=== PATIENT | female | born 1945 ===

== ENCOUNTER 2021-04-14 15:00 | Inpatient (IN) ==
[2021-04-14] MEDS ORDERED: ATROPINE 1 MG/10 ML SYRINGE ONE (15:37)
[2021-04-14 15:43] LABS: Basophils % 0.2 % (0.0-0.8); Eosinophils % 0.2 % (0.00-10.9); Hematocrit 41.3 VOL% (35.7-47.0); Hemoglobin 13.2 GM/DL (12.0-16.0); Immature Granulocytes % 9.2 %; Immature Granulocytes Absolute 0.94 #; Lymphocytes # 1.7 10*3/uL (1.4-4.0); Lymphocytes % 16.8 % (21.3-54.2); Mean Corpuscular Volume 101.2 FL (87-102); Mean Platelet Volume 9.9 FL (9.6-12.0); Monocytes % 4.7 % (1.7-12.7); NRBC # 0.03 10*3/uL; Neutrophils % 68.9 % (38.7-73.9); Platelet Count 153 T/CUMM (130-400); Red Blood Count 4.08 MC/CUMM (3.8-5.5); Red Cell Distribution Width 15.7 % (9.3-17.3); White Blood Count 10.2 T/CUMM (4-12)
[2021-04-14] MEDS ORDERED: ATROPINE 1 MG/10 ML SYRINGE IV STA (15:46)
[2021-04-14 15:50] LABS: ABG Base Excess -8.5 MMOL/L (-2.5-2.5); ABG HCO3 17.6 MMOL/L (20-26); ABG Oxygen Saturation 99.7 % (95-100); ABG PCO2 22.8 MM HG (35-48); ABG TCO2 12.8 MMOL/L (23-27)
[2021-04-14 15:54] LABS: Alanine Aminotransferase 18 U/L (13-56); Albumin 2.2 G/DL (3.4-5.0); Alkaline Phosphatase 167 U/L (45-117); Aspartate Amino Transferase 227 U/L (0-37); Blood Urea Nitrogen 16 MG/DL (7-18); Calcium 8.6 MG/DL (8.5-10.1); Carbon Dioxide 18 MMOL/L (21-32); Estimated Glom Filtration Rate 38 ML/MIN; Glucose 99 MG/DL (74-106); Osmolality,Calculated 279.4 MOS/KG (273-304); Potassium 4.7 MMOL/L (3.5-5.1); Sodium 140 MMOL/L (136-145); Total Protein 6.5 G/DL (6.4-8.2)
[2021-04-14] MEDS ORDERED: NOREPINEPHRINE 4 MG/4 ML VIAL IV ONE (15:59)
[2021-04-14 16:03] LABS: Barbiturates Screen,Urine Negative (Negative); Benzodiazepines Screen,Urine Negative (Negative); Cannabinoid Screen,Urine Negative (Negative); Opiate Screen,Urine Negative (Negative); Phencyclidine Screen,Urine Negative (Negative)
[2021-04-14 16:09] LABS: Bacteria,Urine Many /HPF (Few); Bilirubin,Urine Negative (Negative); Blood, Urine Negative (Negative); Glucose,Urine (UA) Negative (Negative); Ketones,Urine 5 mg/dL (Negative); Mucus,Urine Many /LPF (Occasional); Nitrite,Urine Negative (Negative); Protein,Urine 100 MG/DL; RBC,Urine 9 /HPF (0-4); Urine Appearance CLOUDY (Clear); Urine Color Amber (Yellow); Urine Specific Gravity 1.015 (1.001-1.035)
[2021-04-14 16:17] LABS: Atypical Lymphocytes 1+; Band Neutrophils 2 % (0-10); Lymphocytes 20 % (20-55); Platelet Estimate Normal; Segmented Neutrophils 69 % (50-85); Total Cells Counted 100
[2021-04-14] MEDS ORDERED: ALBUTEROL 2.5 MG/3 ML NEB RESP TX PRN (16:42)
[2021-04-14] MEDS ORDERED: ONDANSETRON 4 MG/2 ML VIAL IV PRN (16:43)
[2021-04-14] MEDS ORDERED: MORPHINE 2 MG/1 ML SYRINGE IV PRN (16:43)
[2021-04-14] MEDS ORDERED: MIDAZOLAM 2 MG/2 ML VIAL IV PRN (17:35)
[2021-04-14] MEDS ORDERED: fentaNYL 100 MCG/2 ML VIAL IV PRN (17:37)
[2021-04-14 17:47] LABS: INR 1.3; PT Patient Result 14.1 SECS (10.5-12.0); Partial Thromboplastin Time 29.6 SECS (23.8-32.1)
[2021-04-14] MEDS: ATROPINE 1 MG/10 ML SYRINGE IV PRN (17:49)
[2021-04-14] MEDS: MIDAZOLAM 100 MG in SODIUM CHLORIDE 0.9% 80 ML IV SCH (17:56)
[2021-04-14] MEDS ORDERED: INFLUENZA VIRUS VACCINE 0.5 ML SYRINGE IM ONE (18:21)
[2021-04-14] MEDS: LACTATED RINGERS 1,000 ML IV SCH (18:30)
[2021-04-14] MEDS: CLINDAMYCIN INJ 600 MG/50 ML PREMIX IV SCH (18:41)
[2021-04-14] MEDS: ENOXAPARIN 40 MG/0.4 ML SYRINGE SUBCUT SCH (18:42)
[2021-04-14] MEDS: cefTRIAXone 1,000 MG in SODIUM CHLORIDE 0.9% 100 ML IV SCH (18:42)
[2021-04-14] MEDS ORDERED: MAGNESIUM SULF RIDER 2 GM/50 ML PREMIX IV PRN (19:44)
[2021-04-14] MEDS ORDERED: MAGNESIUM SULF RIDER 4 GM/100 ML PREMIX IV PRN (19:44)
[2021-04-14] MEDS ORDERED: POTASSIUM CHLORIDE RIDER 10 MEQ/100 ML PREMIX IV PRN (19:44)
[2021-04-14] MEDS ORDERED: SODIUM CHLORIDE 0.9% 1,000 ML IV STA (20:24)
[2021-04-14] MEDS: CARBIDOPA/LEVODOPA 25-100 MG TABLET PO SCH (20:57)
[2021-04-14] MEDS: levETIRAcetam 500 MG TABLET PO SCH (20:57)
[2021-04-14] MEDS: FAMOTIDINE 20 MG/2 ML VIAL IV SCH (20:57)
[2021-04-14] MEDS: DONEPEZIL 10 MG TABLET PO SCH (20:57)
[2021-04-14] MEDS: DIVALPROEX 250 MG TABLET PO SCH (20:57)
[2021-04-14] MEDS: INSULIN REGULAR 100 UNIT/ML IV SCH (21:26)
[2021-04-14] MEDS: CISATRACURIUM 10 MG/5 ML VIAL IV PRN (22:56)
[2021-04-14 23:18] LABS: Basophils % 0.2 % (0.0-0.8); Hematocrit 34.1 VOL% (35.7-47.0); Hemoglobin 11.4 GM/DL (12.0-16.0); Immature Granulocytes % 2.3 %; Immature Granulocytes Absolute 0.24 #; Lymphocytes # 1.5 10*3/uL (1.4-4.0); Lymphocytes % 14.6 % (21.3-54.2); Mean Corpuscular HGB Conc 33.4 GM/DL (32-36); Mean Platelet Volume 9.3 FL (9.6-12.0); Monocytes % 10.3 % (1.7-12.7); Neutrophils % 72.6 % (38.7-73.9); Platelet Count 140 T/CUMM (130-400); Red Blood Count 3.59 MC/CUMM (3.8-5.5); White Blood Count 10.2 T/CUMM (4-12)
[2021-04-14 23:28] LABS: INR 1.5; PT Patient Result 16.7 SECS (10.5-12.0); Partial Thromboplastin Time 42.1 SECS (23.8-32.1)
[2021-04-14 23:38] LABS: Calcium 7.6 MG/DL (8.5-10.1); Osmolality,Calculated 279.4 MOS/KG (273-304); Potassium 3.2 MMOL/L (3.5-5.1)
[2021-04-14 23:45] LABS: High Sensitive Troponin I* 422.7 ng/L (0-54)
[2021-04-14] MEDS: POTASSIUM CHLORIDE RIDER 20 MEQ/100 ML PREMIX IV PRN (23:59)
[2021-04-15] MEDS: POTASSIUM CHLORIDE RIDER 20 MEQ/100 ML PREMIX IV PRN (01:00)
[2021-04-15] MEDS: fentaNYL INJ 1,250 MCG in SODIUM CHLORIDE 0.9% 225 ML IV PRN (01:16)
[2021-04-15] MEDS: CLINDAMYCIN INJ 600 MG/50 ML PREMIX IV SCH ×3 (01:33→16:37)
[2021-04-15] MEDS: INSULIN REGULAR 100 UNIT/ML IV SCH ×7 (02:20→22:14)
[2021-04-15 04:34] LABS: Basophils % 0.2 % (0.0-0.8); Hemoglobin 10.9 GM/DL (12.0-16.0); Immature Granulocytes % 2.1 %; Lymphocytes # 1.5 10*3/uL (1.4-4.0); Lymphocytes % 15.3 % (21.3-54.2); Mean Corpuscular HGB Conc 34.1 GM/DL (32-36); Mean Corpuscular Volume 94.4 FL (87-102); Monocytes % 9.6 % (1.7-12.7); Neutrophils % 72.8 % (38.7-73.9); Platelet Count 134 T/CUMM (130-400); Red Blood Count 3.39 MC/CUMM (3.8-5.5); Red Cell Distribution Width 15.1 % (9.3-17.3); White Blood Count 9.7 T/CUMM (4-12)
[2021-04-15 04:35] LABS: ABG Base Excess -2.8 MMOL/L (-2.5-2.5); ABG HCO3 22.1 MMOL/L (20-26); ABG Oxygen Saturation 99.9 % (95-100); ABG PCO2 21.7 MM HG (35-48); ABG PH 7.535 (7.35-7.45); ABG TCO2 16.3 MMOL/L (23-27)
[2021-04-15 04:43] LABS: INR 1.5; PT Patient Result 16.1 SECS (10.5-12.0); Partial Thromboplastin Time 42.5 SECS (23.8-32.1)
[2021-04-15] MEDS: LACTATED RINGERS 1,000 ML IV SCH ×3 (04:53→23:00)
[2021-04-15 04:56] LABS: CKMB % 4.8 %; High Sensitive Troponin I* 293.1 ng/L (0-54)
[2021-04-15 05:15] LABS: Albumin 1.7 G/DL (3.4-5.0); Bilirubin,Total 1.3 MG/DL (0.20-1.00); Calcium 7.4 MG/DL (8.5-10.1); Osmolality,Calculated 283.1 MOS/KG (273-304); Potassium 4.2 MMOL/L (3.5-5.1); Total Protein 4.5 G/DL (6.4-8.2)
[2021-04-15 05:20] LABS: Bacteria,Urine Occasional /HPF (Few); Bilirubin,Urine Negative (Negative); Blood, Urine Small mg/dL (Negative); Glucose,Urine (UA) Negative (Negative); Ketones,Urine Negative (Negative); Mucus,Urine Occasional /LPF (Occasional); Nitrite,Urine Negative (Negative); Protein,Urine Negative; RBC,Urine 7 /HPF (0-4); Squamous Epithelial Cell,Urine Occasional /HPF (0-10); Urine Appearance Slightly Hazy (Clear); Urine Color Yellow (Yellow); Urine Specific Gravity 1.006 (1.001-1.035)
[2021-04-15] MEDS: FAMOTIDINE 20 MG/2 ML VIAL IV SCH ×2 (08:18→20:57)
[2021-04-15] MEDS: CARBIDOPA/LEVODOPA 25-100 MG TABLET PO SCH ×3 (08:18→20:57)
[2021-04-15] MEDS: levETIRAcetam 500 MG TABLET PO SCH (08:19)
[2021-04-15] MEDS: DIVALPROEX 250 MG TABLET PO SCH ×3 (08:19→20:57)
[2021-04-15] MEDS ORDERED: SODIUM CHLORIDE 0.9% 1,000 ML IV ONE (10:23)
[2021-04-15 10:55] LABS: Calcium 7.3 MG/DL (8.5-10.1); Potassium 3.6 MMOL/L (3.5-5.1)
[2021-04-15] MEDS: ATROPINE 1 MG/10 ML SYRINGE IV PRN (11:00)
[2021-04-15 11:09] LABS: Basophils % 0.1 % (0.0-0.8); Hematocrit 29.5 VOL% (35.7-47.0); Hemoglobin 10.2 GM/DL (12.0-16.0); Immature Granulocytes % 2.9 %; Immature Granulocytes Absolute 0.27 #; Lymphocytes # 1.4 10*3/uL (1.4-4.0); Mean Corpuscular HGB Conc 34.6 GM/DL (32-36); Mean Corpuscular Volume 94.9 FL (87-102); Mean Platelet Volume 10.1 FL (9.6-12.0); Monocytes % 9.2 % (1.7-12.7); Neutrophils % 72.8 % (38.7-73.9); Platelet Count 129 T/CUMM (130-400); Red Blood Count 3.11 MC/CUMM (3.8-5.5); Red Cell Distribution Width 15.5 % (9.3-17.3); White Blood Count 9.2 T/CUMM (4-12)
[2021-04-15] MEDS ORDERED: DEXTROSE 50% 25 GM/50 ML SYRINGE IV ONE ×2 (11:09→11:30)
[2021-04-15 11:15] LABS: INR 1.4; PT Patient Result 15.3 SECS (10.5-12.0); Partial Thromboplastin Time 41.6 SECS (23.8-32.1)
[2021-04-15 11:22] LABS: CKMB % 5.4 %; High Sensitive Troponin I* 203.7 ng/L (0-54)
[2021-04-15 11:55] LABS: Ovalocytes Few; Platelet Estimate Adequate; Polychromasia Slight
[2021-04-15] MEDS ORDERED: LORazepam 2 MG/1 ML VIAL ONE (14:46)
[2021-04-15] MEDS: LORazepam 2 MG/1 ML VIAL IV PRN (14:50)
[2021-04-15] MEDS: cefTRIAXone 1,000 MG in SODIUM CHLORIDE 0.9% 100 ML IV SCH (16:05)
[2021-04-15] MEDS: ENOXAPARIN 40 MG/0.4 ML SYRINGE SUBCUT SCH (16:08)
[2021-04-15] MEDS: CISATRACURIUM 10 MG/5 ML VIAL IV PRN (16:29)
[2021-04-15] MEDS ORDERED: ACETAMINOPHEN 325 MG/10.15 ML UDCUP PO PRN (17:15)
[2021-04-15] MEDS: MIDAZOLAM 100 MG in SODIUM CHLORIDE 0.9% 80 ML IV SCH ×2 (17:30→18:09)
[2021-04-15] MEDS ORDERED: POTASSIUM CHLORIDE RIDER 20 MEQ/100 ML PREMIX IV PRN (17:30)
[2021-04-15 17:52] LABS: Hemoglobin 9.6 GM/DL (12.0-16.0); Immature Granulocytes Absolute 0.16 #; Mean Corpuscular HGB Conc 34.3 GM/DL (32-36); Mean Corpuscular Volume 94.6 FL (87-102); Mean Platelet Volume 10.6 FL (9.6-12.0); Monocytes % 8.8 % (1.7-12.7); Neutrophils % 76.2 % (38.7-73.9); Platelet Count 121 T/CUMM (130-400); Red Blood Count 2.96 MC/CUMM (3.8-5.5); Red Cell Distribution Width 15.7 % (9.3-17.3)
[2021-04-15 18:06] LABS: INR 1.5; PT Patient Result 16.2 SECS (10.5-12.0); Partial Thromboplastin Time 48.7 SECS (23.8-32.1)
[2021-04-15 18:11] LABS: CKMB % 5.3 %; High Sensitive Troponin I* 147.8 ng/L (0-54)
[2021-04-15 18:29] LABS: Calcium 7.1 MG/DL (8.5-10.1); Potassium 3.9 MMOL/L (3.5-5.1)
[2021-04-15] MEDS: DONEPEZIL 10 MG TABLET PO SCH (20:57)
[2021-04-15] MEDS ORDERED: LACTATED RINGERS 500 ML IV ONE (23:20)
[2021-04-15 23:21] LABS: Basophils % 0.1 % (0.0-0.8); Hematocrit 26.1 VOL% (35.7-47.0); Immature Granulocytes % 2.4 %; Immature Granulocytes Absolute 0.19 #; Lymphocytes # 1.1 10*3/uL (1.4-4.0); Lymphocytes % 14.4 % (21.3-54.2); Mean Corpuscular HGB Conc 34.5 GM/DL (32-36); Mean Corpuscular Volume 93.9 FL (87-102); Mean Platelet Volume 9.8 FL (9.6-12.0); Monocytes % 8.5 % (1.7-12.7); Neutrophils % 74.6 % (38.7-73.9); Platelet Count 119 T/CUMM (130-400); Red Blood Count 2.78 MC/CUMM (3.8-5.5); Red Cell Distribution Width 15.7 % (9.3-17.3); White Blood Count 7.9 T/CUMM (4-12)
[2021-04-15 23:35] LABS: Calcium 6.9 MG/DL (8.5-10.1); Osmolality,Calculated 282.1 MOS/KG (273-304); Potassium 3.5 MMOL/L (3.5-5.1)
[2021-04-15] MEDS ORDERED: MAGNESIUM SULF RIDER 1 GM/100 ML PREMIX IV ONE (23:55)
[2021-04-15] MEDS ORDERED: POTASSIUM CHLORIDE RIDER 10 MEQ/100 ML PREMIX IV PRN (23:58)
[2021-04-16] MEDS: INSULIN REGULAR 100 UNIT/ML IV SCH ×4 (00:08→05:45)
[2021-04-16] MEDS ORDERED: MAGNESIUM SULF RIDER 1 GM/25 ML PREMIX IV ONE (00:30)
[2021-04-16 00:38] LABS: INR 1.5; PT Patient Result 15.8 SECS (10.5-12.0); Partial Thromboplastin Time 54.5 SECS (23.8-32.1)
[2021-04-16] MEDS: NOREPINEPHRINE 8 MG in SODIUM CHLORIDE 0.9% 242 ML IV PRN (00:46)
[2021-04-16] MEDS: CLINDAMYCIN INJ 600 MG/50 ML PREMIX IV SCH ×3 (01:58→16:42)
[2021-04-16] MEDS: fentaNYL INJ 1,250 MCG in SODIUM CHLORIDE 0.9% 225 ML IV PRN (02:00)
[2021-04-16 05:48] LABS: ABG HCO3 21.9 MMOL/L (20-26); ABG PCO2 31.3 MM HG (35-48); ABG PH 7.427 (7.35-7.45)
[2021-04-16 06:03] LABS: Basophils % 0.1 % (0.0-0.8); Hematocrit 25.9 VOL% (35.7-47.0); Hemoglobin 8.9 GM/DL (12.0-16.0); Immature Granulocytes % 3.8 %; Lymphocytes # 0.8 10*3/uL (1.4-4.0); Lymphocytes % 10.3 % (21.3-54.2); Mean Corpuscular HGB Conc 34.4 GM/DL (32-36); Mean Corpuscular Volume 94.2 FL (87-102); Mean Platelet Volume 10.6 FL (9.6-12.0); Monocytes % 8.1 % (1.7-12.7); Neutrophils % 77.7 % (38.7-73.9); Platelet Count 122 T/CUMM (130-400); Red Blood Count 2.75 MC/CUMM (3.8-5.5); Red Cell Distribution Width 16.1 % (9.3-17.3); White Blood Count 7.9 T/CUMM (4-12)
[2021-04-16 06:05] LABS: CKMB % 4.8 %; High Sensitive Troponin I* 121.3 ng/L (0-54)
[2021-04-16 06:12] LABS: INR 1.4; PT Patient Result 14.9 SECS (10.5-12.0); Partial Thromboplastin Time 50.1 SECS (23.8-32.1)
[2021-04-16 06:16] LABS: Albumin 1.5 G/DL (3.4-5.0); Bilirubin,Total 1.4 MG/DL (0.20-1.00); Osmolality,Calculated 281.3 MOS/KG (273-304); Potassium 3.3 MMOL/L (3.5-5.1); Total Protein 3.9 G/DL (6.4-8.2)
[2021-04-16] MEDS ORDERED: POTASSIUM CHLORIDE RIDER 10 MEQ/100 ML PREMIX IV PRN (06:21)
[2021-04-16] MEDS ORDERED: MAGNESIUM SULF RIDER 2 GM/50 ML PREMIX IV PRN (06:22)
[2021-04-16] MEDS ORDERED: MAGNESIUM SULF RIDER 4 GM/100 ML PREMIX IV PRN (06:22)
[2021-04-16] MEDS: POTASSIUM CHLORIDE RIDER 20 MEQ/100 ML PREMIX IV PRN ×3 (06:30→13:21)
[2021-04-16] MEDS: DEXTROSE 50% 25 GM/50 ML SYRINGE IV PRN (07:20)
[2021-04-16] MEDS ORDERED: INSULIN REGULAR 100 UNIT/ML SUBCUT SCH (08:00)
[2021-04-16] MEDS: CARBIDOPA/LEVODOPA 25-100 MG TABLET PO SCH ×3 (08:18→20:09)
[2021-04-16] MEDS: DIVALPROEX 250 MG TABLET PO SCH (08:18)
[2021-04-16] MEDS: FAMOTIDINE 20 MG/2 ML VIAL IV SCH ×2 (08:18→20:10)
[2021-04-16] MEDS: DEXT 5% LACT RING KCL 20 MEQ 20 MEQ/1,000 ML BAG IV SCH ×2 (08:18→18:20)
[2021-04-16] MEDS: methylPREDNISolone SOD SUC 40 MG/1 ML VIAL IV SCH ×2 (10:42→22:49)
[2021-04-16] MEDS: ASPIRIN EC 81 MG TABLET PO SCH (10:43)
[2021-04-16] MEDS: INSULIN REGULAR 100 UNIT/ML SUBCUT SCH ×3 (11:32→20:08)
[2021-04-16] MEDS ORDERED: MIDAZOLAM 10 MG/2 ML VIAL IM ONE (13:53)
[2021-04-16] MEDS ORDERED: MIDAZOLAM 100 MG in SODIUM CHLORIDE 0.9% 80 ML IV PRN (13:53)
[2021-04-16] MEDS ORDERED: VALPROIC ACID INJ 500 MG in SODIUM CHLORIDE 0.9% 100 ML IV SCH (15:00)
[2021-04-16] MEDS: cefTRIAXone 1,000 MG in SODIUM CHLORIDE 0.9% 100 ML IV SCH (16:11)
[2021-04-16] MEDS: ENOXAPARIN 40 MG/0.4 ML SYRINGE SUBCUT SCH (16:14)
[2021-04-16] MEDS: LORazepam 2 MG/1 ML VIAL IV PRN (17:59)
[2021-04-16] MEDS ORDERED: LORazepam 2 MG/1 ML VIAL IV ONE ×2 (18:22→20:23)
[2021-04-16] MEDS ORDERED: PHENobarbital 130 MG/1 ML VIAL IV ONE (18:32)
[2021-04-16] MEDS: DONEPEZIL 10 MG TABLET PO SCH (20:10)
[2021-04-16] MEDS ORDERED: LORazepam 2 MG/1 ML VIAL ONE (20:28)
[2021-04-16] MEDS: VALPROIC ACID INJ 750 MG in SODIUM CHLORIDE 0.9% 100 ML IV SCH (21:56)
[2021-04-17] MEDS: CLINDAMYCIN INJ 600 MG/50 ML PREMIX IV SCH ×3 (00:08→16:52)
[2021-04-17] MEDS: INSULIN REGULAR 100 UNIT/ML SUBCUT SCH ×6 (00:14→20:03)
[2021-04-17] MEDS: PHENobarbital 130 MG/1 ML VIAL IV SCH ×3 (02:08→17:49)
[2021-04-17 03:22] LABS: Basophils % 0.1 % (0.0-0.8); Hemoglobin 9.1 GM/DL (12.0-16.0); Immature Granulocytes % 6.4 %; Immature Granulocytes Absolute 0.56 #; Lymphocytes # 0.9 10*3/uL (1.4-4.0); Lymphocytes % 9.9 % (21.3-54.2); Mean Corpuscular HGB Conc 33.7 GM/DL (32-36); Mean Corpuscular Volume 95.7 FL (87-102); Mean Platelet Volume 10.8 FL (9.6-12.0); Monocytes % 4.8 % (1.7-12.7); NRBC # 0.03 10*3/uL; Neutrophils % 78.8 % (38.7-73.9); Platelet Count 125 T/CUMM (130-400); Red Blood Count 2.82 MC/CUMM (3.8-5.5); Red Cell Distribution Width 16.4 % (9.3-17.3); White Blood Count 8.8 T/CUMM (4-12)
[2021-04-17 03:27] LABS: ABG Base Excess -4.4 MMOL/L (-2.5-2.5); ABG HCO3 20.8 MMOL/L (20-26); ABG Oxygen Saturation 99.4 % (95-100); ABG PH 7.417 (7.35-7.45); ABG TCO2 17.8 MMOL/L (23-27)
[2021-04-17] MEDS: DEXT 5% LACT RING KCL 20 MEQ 20 MEQ/1,000 ML BAG IV SCH ×3 (03:34→14:05)
[2021-04-17 03:37] LABS: INR 1.2; PT Patient Result 13.8 SECS (10.5-12.0); Partial Thromboplastin Time 40.6 SECS (23.8-32.1)
[2021-04-17 03:38] LABS: Albumin 1.6 G/DL (3.4-5.0); Bilirubin,Total 0.7 MG/DL (0.20-1.00); Calcium 6.7 MG/DL (8.5-10.1); Osmolality,Calculated 277.8 MOS/KG (273-304); Potassium 3.4 MMOL/L (3.5-5.1); Total Protein 4.4 G/DL (6.4-8.2)
[2021-04-17 03:42] LABS: Band Neutrophils 1 % (0-10); Lymphocytes 7 % (20-55); Nucleated Red Blood Cells 1 (0-5); Platelet Estimate Normal; Segmented Neutrophils 90 % (50-85); Total Cells Counted 100
[2021-04-17 03:43] LABS: Target Cells Few
[2021-04-17] MEDS: POTASSIUM CHLORIDE RIDER 20 MEQ/100 ML PREMIX IV PRN (04:14)
[2021-04-17] MEDS: VALPROIC ACID INJ 750 MG in SODIUM CHLORIDE 0.9% 100 ML IV SCH ×3 (06:07→21:43)
[2021-04-17] MEDS: FAMOTIDINE 20 MG/2 ML VIAL IV SCH ×2 (08:07→20:18)
[2021-04-17] MEDS: CARBIDOPA/LEVODOPA 25-100 MG TABLET PO SCH ×3 (08:08→20:18)
[2021-04-17] MEDS: ASPIRIN EC 81 MG TABLET PO SCH (08:08)
[2021-04-17] MEDS ORDERED: CALCIUM GLUCONATE 1,000 MG in SODIUM CHLORIDE 0.9% 100 ML IV ONE (10:20)
[2021-04-17] MEDS: methylPREDNISolone SOD SUC 40 MG/1 ML VIAL IV SCH ×2 (10:35→22:16)
[2021-04-17] MEDS: ENOXAPARIN 40 MG/0.4 ML SYRINGE SUBCUT SCH (16:52)
[2021-04-17] MEDS: DONEPEZIL 10 MG TABLET PO SCH (20:19)
[2021-04-17] MEDS: NOREPINEPHRINE 8 MG in SODIUM CHLORIDE 0.9% 242 ML IV PRN (21:20)
[2021-04-18] MEDS: INSULIN REGULAR 100 UNIT/ML SUBCUT SCH ×7 (00:27→23:52)
[2021-04-18] MEDS: DEXT 5% LACT RING KCL 20 MEQ 20 MEQ/1,000 ML BAG IV SCH (00:39)
[2021-04-18] MEDS: PHENobarbital 130 MG/1 ML VIAL IV SCH ×3 (01:06→17:54)
[2021-04-18] MEDS: CLINDAMYCIN INJ 600 MG/50 ML PREMIX IV SCH ×2 (01:07→08:02)
[2021-04-18 03:49] LABS: Basophils % 0.4 % (0.0-0.8); Hematocrit 25.8 VOL% (35.7-47.0); Hemoglobin 8.5 GM/DL (12.0-16.0); Immature Granulocytes % 7.8 %; Immature Granulocytes Absolute 0.54 #; Lymphocytes # 0.8 10*3/uL (1.4-4.0); Lymphocytes % 11.4 % (21.3-54.2); Mean Corpuscular HGB Conc 32.9 GM/DL (32-36); Mean Corpuscular Volume 96.6 FL (87-102); Mean Platelet Volume 10.9 FL (9.6-12.0); Monocytes % 13.2 % (1.7-12.7); NRBC # 0.03 10*3/uL; Neutrophils % 67.2 % (38.7-73.9); Platelet Count 106 T/CUMM (130-400); Red Blood Count 2.67 MC/CUMM (3.8-5.5); Red Cell Distribution Width 16.7 % (9.3-17.3)
[2021-04-18 03:50] LABS: ABG Base Excess -0.8 MMOL/L (-2.5-2.5); ABG HCO3 23.7 MMOL/L (20-26); ABG Oxygen Saturation 99.7 % (95-100); ABG PCO2 32.2 MM HG (35-48); ABG PH 7.454 (7.35-7.45); ABG TCO2 20.8 MMOL/L (23-27)
[2021-04-18 04:02] LABS: INR 1.1; PT Patient Result 12.5 SECS (10.5-12.0); Partial Thromboplastin Time 37.8 SECS (23.8-32.1)
[2021-04-18 04:11] LABS: Albumin 1.6 G/DL (3.4-5.0); Bilirubin,Total 0.6 MG/DL (0.20-1.00); Calcium 7.2 MG/DL (8.5-10.1); Osmolality,Calculated 284.4 MOS/KG (273-304); Potassium 3.9 MMOL/L (3.5-5.1); Total Protein 4.4 G/DL (6.4-8.2)
[2021-04-18 04:21] LABS: Lymphocytes 13 % (20-55); Metamyelocytes 2 %; Promyelocytes 1 %; Segmented Neutrophils 70 % (50-85); Total Cells Counted 100
[2021-04-18 04:22] LABS: Anisocytosis 1+; Platelet Estimate Adequate; Stomatocytes Few
[2021-04-18 04:23] LABS: Spherocytes Few
[2021-04-18] MEDS: POTASSIUM CHLORIDE RIDER 20 MEQ/100 ML PREMIX IV PRN (06:25)
[2021-04-18] MEDS: VALPROIC ACID INJ 750 MG in SODIUM CHLORIDE 0.9% 100 ML IV SCH ×3 (06:26→21:31)
[2021-04-18] MEDS: CARBIDOPA/LEVODOPA 25-100 MG TABLET PO SCH ×3 (08:02→20:59)
[2021-04-18] MEDS: ASPIRIN EC 81 MG TABLET PO SCH (08:02)
[2021-04-18] MEDS: FAMOTIDINE 20 MG/2 ML VIAL IV SCH ×2 (08:02→21:05)
[2021-04-18] MEDS: methylPREDNISolone SOD SUC 40 MG/1 ML VIAL IV SCH ×2 (10:35→23:50)
[2021-04-18] MEDS: carvediloL 3.125 MG TABLET PO SCH ×2 (11:50→20:59)
[2021-04-18] MEDS: ENOXAPARIN 40 MG/0.4 ML SYRINGE SUBCUT SCH (17:54)
[2021-04-18] MEDS: DONEPEZIL 10 MG TABLET PO SCH (20:59)
[2021-04-19] MEDS: PHENobarbital 130 MG/1 ML VIAL IV SCH ×3 (02:58→17:55)
[2021-04-19 03:37] LABS: ABG Base Excess 2.4 MMOL/L (-2.5-2.5); ABG HCO3 26.6 MMOL/L (20-26); ABG Oxygen Saturation 99.6 % (95-100); ABG PH 7.468 (7.35-7.45); ABG TCO2 24.1 MMOL/L (23-27)
[2021-04-19 03:47] LABS: INR 1.1; PT Patient Result 12.5 SECS (10.5-12.0); Partial Thromboplastin Time 35.1 SECS (23.8-32.1)
[2021-04-19 04:14] LABS: Calcium 7.1 MG/DL (8.5-10.1); Osmolality,Calculated 277.8 MOS/KG (273-304); Potassium 4.7 MMOL/L (3.5-5.1)
[2021-04-19] MEDS: INSULIN REGULAR 100 UNIT/ML SUBCUT SCH ×5 (04:36→20:26)
[2021-04-19] MEDS: VALPROIC ACID INJ 750 MG in SODIUM CHLORIDE 0.9% 100 ML IV SCH ×3 (05:37→22:03)
[2021-04-19] MEDS: carvediloL 3.125 MG TABLET PO SCH ×2 (08:36→20:25)
[2021-04-19] MEDS: FAMOTIDINE 20 MG/2 ML VIAL IV SCH ×2 (08:36→20:25)
[2021-04-19] MEDS: ASPIRIN EC 81 MG TABLET PO SCH (08:36)
[2021-04-19] MEDS: CARBIDOPA/LEVODOPA 25-100 MG TABLET PO SCH ×3 (08:36→20:25)
[2021-04-19] MEDS: ASPIRIN CHEW 81 MG TABLET PO SCH (09:03)
[2021-04-19] MEDS: methylPREDNISolone SOD SUC 40 MG/1 ML VIAL IV SCH ×2 (10:38→23:16)
[2021-04-19] MEDS: ENOXAPARIN 40 MG/0.4 ML SYRINGE SUBCUT SCH (17:55)
[2021-04-19] MEDS: DONEPEZIL 10 MG TABLET PO SCH (20:25)
[2021-04-20] MEDS: INSULIN REGULAR 100 UNIT/ML SUBCUT SCH ×6 (00:58→20:45)
[2021-04-20] MEDS: PHENobarbital 130 MG/1 ML VIAL IV SCH ×3 (01:02→18:11)
[2021-04-20 03:41] LABS: ABG Base Excess 2.4 MMOL/L (-2.5-2.5); ABG HCO3 26.6 MMOL/L (20-26); ABG Oxygen Saturation 98.4 % (95-100); ABG PCO2 38.5 MM HG (35-48); ABG PH 7.446 (7.35-7.45); ABG TCO2 24.4 MMOL/L (23-27)
[2021-04-20 03:45] LABS: Basophils # 0.1 10*3/uL (0.0-0.2); Basophils % 1.4 % (0.0-0.8); Hematocrit 26.8 VOL% (35.7-47.0); Hemoglobin 9.1 GM/DL (12.0-16.0); Immature Granulocytes % 14.3 %; Immature Granulocytes Absolute 0.93 #; Lymphocytes % 15.7 % (21.3-54.2); Mean Corpuscular Volume 96.8 FL (87-102); NRBC # 0.03 10*3/uL; Neutrophils % 56.6 % (38.7-73.9); Platelet Count 105 T/CUMM (130-400); Red Blood Count 2.77 MC/CUMM (3.8-5.5); Red Cell Distribution Width 15.9 % (9.3-17.3); White Blood Count 6.5 T/CUMM (4-12)
[2021-04-20 03:57] LABS: Calcium 7.5 MG/DL (8.5-10.1); Osmolality,Calculated 283.5 MOS/KG (273-304); Potassium 4.4 MMOL/L (3.5-5.1)
[2021-04-20 04:07] LABS: Band Neutrophils 6 % (0-10); Hypochromasia 2+; Lymphocytes 15 % (20-55); Metamyelocytes 3 %; Platelet Estimate Adequate; Promyelocytes 2 %; Schistocytes Few; Segmented Neutrophils 60 % (50-85); Target Cells Few; Total Cells Counted 100
[2021-04-20] MEDS: VALPROIC ACID INJ 750 MG in SODIUM CHLORIDE 0.9% 100 ML IV SCH ×3 (05:49→21:36)
[2021-04-20] MEDS: FAMOTIDINE 20 MG/2 ML VIAL IV SCH ×2 (08:22→21:01)
[2021-04-20] MEDS: CARBIDOPA/LEVODOPA 25-100 MG TABLET PO SCH ×3 (08:22→21:01)
[2021-04-20] MEDS: ASPIRIN CHEW 81 MG TABLET PO SCH (08:22)
[2021-04-20] MEDS: carvediloL 3.125 MG TABLET PO SCH ×2 (08:22→21:01)
[2021-04-20] MEDS: methylPREDNISolone SOD SUC 40 MG/1 ML VIAL IV SCH ×2 (11:13→22:03)
[2021-04-20] MEDS: DEXTROSE 50% 25 GM/50 ML SYRINGE IV PRN (16:07)
[2021-04-20] MEDS: DONEPEZIL 10 MG TABLET PO SCH (21:01)
[2021-04-21] MEDS: INSULIN REGULAR 100 UNIT/ML SUBCUT SCH ×6 (00:29→19:36)
[2021-04-21] MEDS: PHENobarbital 130 MG/1 ML VIAL IV SCH ×3 (01:35→18:15)
[2021-04-21 04:25] LABS: ABG Base Excess 3.9 MMOL/L (-2.5-2.5); ABG HCO3 27.9 MMOL/L (20-26); ABG Oxygen Saturation 99.5 % (95-100); ABG PCO2 35.7 MM HG (35-48); ABG PH 7.491 (7.35-7.45); ABG TCO2 25.1 MMOL/L (23-27)
[2021-04-21 04:34] LABS: Basophils % 0.5 % (0.0-0.8); Hematocrit 25.9 VOL% (35.7-47.0); Hemoglobin 8.6 GM/DL (12.0-16.0); Immature Granulocytes % 14.5 %; Immature Granulocytes Absolute 1.07 #; Lymphocytes # 1.2 10*3/uL (1.4-4.0); Lymphocytes % 16.8 % (21.3-54.2); Mean Corpuscular HGB Conc 33.2 GM/DL (32-36); Mean Corpuscular Volume 97.4 FL (87-102); Mean Platelet Volume 10.7 FL (9.6-12.0); NRBC # 0.08 10*3/uL; Neutrophils % 56.2 % (38.7-73.9); Platelet Count 124 T/CUMM (130-400); Red Blood Count 2.66 MC/CUMM (3.8-5.5); Red Cell Distribution Width 16.1 % (9.3-17.3); White Blood Count 7.4 T/CUMM (4-12)
[2021-04-21 04:40] LABS: Calcium 7.5 MG/DL (8.5-10.1); Osmolality,Calculated 279.7 MOS/KG (273-304); Potassium 4.4 MMOL/L (3.5-5.1)
[2021-04-21 05:03] LABS: Band Neutrophils 5 % (0-10); Eosinophils 1 % (0-10); Lymphocytes 18 % (20-55); Myelocytes 3 %; Nucleated Red Blood Cells 3 (0-5); Platelet Estimate Normal; Segmented Neutrophils 65 % (50-85); Total Cells Counted 100
[2021-04-21 05:04] LABS: Hypochromasia Slight
[2021-04-21] MEDS: VALPROIC ACID INJ 750 MG in SODIUM CHLORIDE 0.9% 100 ML IV SCH ×3 (05:30→21:30)
[2021-04-21] MEDS: ASPIRIN CHEW 81 MG TABLET PO SCH (08:38)
[2021-04-21] MEDS: CARBIDOPA/LEVODOPA 25-100 MG TABLET PO SCH ×3 (08:38→20:24)
[2021-04-21] MEDS: carvediloL 3.125 MG TABLET PO SCH ×2 (08:38→20:24)
[2021-04-21] MEDS: FAMOTIDINE 20 MG/2 ML VIAL IV SCH ×2 (09:11→20:23)
[2021-04-21] MEDS: methylPREDNISolone SOD SUC 40 MG/1 ML VIAL IV SCH ×2 (11:05→22:20)
[2021-04-21] MEDS: DEXTROSE 50% 25 GM/50 ML SYRINGE IV PRN (11:22)
[2021-04-21] MEDS ORDERED: LIDOCAINE 1%/EPI INJ 20 ML VIAL ONE (12:09)
[2021-04-21] MEDS ORDERED: BUPIVACAINE MPF 0.25% 30 ML VIAL ONE (12:09)
[2021-04-21] MEDS ORDERED: ROCURONIUM 50 MG/5 ML VIAL IV ONE (12:53)
[2021-04-21] MEDS ORDERED: MIDAZOLAM 2 MG/2 ML VIAL ONE ×2 (12:53)
[2021-04-21] MEDS ORDERED: SEVOFLURANE 1 UNIT/15 MINUTE INH ONE (14:08)
[2021-04-21] MEDS: DONEPEZIL 10 MG TABLET PO SCH (20:24)
[2021-04-22] MEDS: INSULIN REGULAR 100 UNIT/ML SUBCUT SCH ×6 (00:21→19:45)
[2021-04-22] MEDS: PHENobarbital 130 MG/1 ML VIAL IV SCH ×3 (01:16→17:36)
[2021-04-22 04:20] LABS: ABG Base Excess 3.1 MMOL/L (-2.5-2.5); ABG HCO3 27.2 MMOL/L (20-26); ABG Oxygen Saturation 99.8 % (95-100); ABG PCO2 34.1 MM HG (35-48); ABG PH 7.494 (7.35-7.45); ABG TCO2 24.2 MMOL/L (23-27)
[2021-04-22 04:21] LABS: Basophils % 0.4 % (0.0-0.8); Hematocrit 25.7 VOL% (35.7-47.0); Hemoglobin 8.5 GM/DL (12.0-16.0); Immature Granulocytes % 10.8 %; Immature Granulocytes Absolute 0.89 #; Lymphocytes # 1.4 10*3/uL (1.4-4.0); Lymphocytes % 17.1 % (21.3-54.2); Mean Corpuscular HGB Conc 33.1 GM/DL (32-36); Mean Corpuscular Volume 97.3 FL (87-102); Mean Platelet Volume 10.7 FL (9.6-12.0); Monocytes % 9.8 % (1.7-12.7); Neutrophils % 61.9 % (38.7-73.9); Platelet Count 137 T/CUMM (130-400); Red Blood Count 2.64 MC/CUMM (3.8-5.5); Red Cell Distribution Width 15.9 % (9.3-17.3); White Blood Count 8.2 T/CUMM (4-12)
[2021-04-22] MEDS: DEXTROSE 50% 25 GM/50 ML SYRINGE IV PRN (04:22)
[2021-04-22 04:37] LABS: Albumin 1.4 G/DL (3.4-5.0); Bilirubin,Total 0.4 MG/DL (0.20-1.00); Calcium 7.4 MG/DL (8.5-10.1); Osmolality,Calculated 279.8 MOS/KG (273-304); Potassium 4.2 MMOL/L (3.5-5.1); Total Protein 4.3 G/DL (6.4-8.2)
[2021-04-22 05:12] LABS: Band Neutrophils 4 % (0-10); Hypochromasia 1+; Lymphocytes 20 % (20-55); Myelocytes 3 %; Nucleated Red Blood Cells 4 (0-5); Segmented Neutrophils 67 % (50-85); Total Cells Counted 100
[2021-04-22 05:13] LABS: Microcytosis 1+; Ovalocytes Slight; Platelet Estimate Adequate
[2021-04-22] MEDS: VALPROIC ACID INJ 750 MG in SODIUM CHLORIDE 0.9% 100 ML IV SCH ×3 (05:30→21:57)
[2021-04-22] MEDS: FAMOTIDINE 20 MG/2 ML VIAL IV SCH ×2 (08:42→21:56)
[2021-04-22] MEDS: ASPIRIN CHEW 81 MG TABLET PO SCH (09:46)
[2021-04-22] MEDS: carvediloL 3.125 MG TABLET PO SCH ×2 (09:46→21:56)
[2021-04-22] MEDS: CARBIDOPA/LEVODOPA 25-100 MG TABLET PO SCH ×3 (09:47→21:56)
[2021-04-22] MEDS: methylPREDNISolone SOD SUC 40 MG/1 ML VIAL IV SCH ×2 (10:28→22:01)
[2021-04-22 12:49] LABS: ABG Base Excess 4.6 MMOL/L (-2.5-2.5); ABG HCO3 28.6 MMOL/L (20-26); ABG Oxygen Saturation 99.5 % (95-100); ABG PCO2 39.8 MM HG (35-48); ABG PH 7.465 (7.35-7.45); ABG TCO2 26.5 MMOL/L (23-27)
[2021-04-22] MEDS: ENOXAPARIN 40 MG/0.4 ML SYRINGE SUBCUT SCH (15:59)
[2021-04-22] MEDS: DONEPEZIL 10 MG TABLET PO SCH (21:56)
[2021-04-23] MEDS: INSULIN REGULAR 100 UNIT/ML SUBCUT SCH ×6 (00:06→19:05)
[2021-04-23] MEDS: PHENobarbital 130 MG/1 ML VIAL IV SCH ×3 (01:30→17:37)
[2021-04-23 04:27] LABS: ABG Base Excess 5.4 MMOL/L (-2.5-2.5); ABG HCO3 29.3 MMOL/L (20-26); ABG Oxygen Saturation 99.7 % (95-100); ABG PCO2 34.9 MM HG (35-48); ABG PH 7.519 (7.35-7.45); ABG TCO2 26.5 MMOL/L (23-27)
[2021-04-23 04:31] LABS: Basophils % 0.3 % (0.0-0.8); Hematocrit 24.2 VOL% (35.7-47.0); Hemoglobin 7.8 GM/DL (12.0-16.0); Immature Granulocytes % 10.8 %; Lymphocytes # 1.7 10*3/uL (1.4-4.0); Lymphocytes % 15.6 % (21.3-54.2); Mean Corpuscular HGB Conc 32.2 GM/DL (32-36); Mean Corpuscular Volume 100.4 FL (87-102); Mean Platelet Volume 10.4 FL (9.6-12.0); Monocytes % 10.7 % (1.7-12.7); NRBC # 0.34 10*3/uL; Neutrophils % 62.6 % (38.7-73.9); Platelet Count 127 T/CUMM (130-400); Red Blood Count 2.41 MC/CUMM (3.8-5.5); Red Cell Distribution Width 16.1 % (9.3-17.3); White Blood Count 11.1 T/CUMM (4-12)
[2021-04-23 04:48] LABS: Calcium 7.4 MG/DL (8.5-10.1); Osmolality,Calculated 280.7 MOS/KG (273-304); Potassium 4.4 MMOL/L (3.5-5.1)
[2021-04-23 05:02] LABS: Band Neutrophils 2 % (0-10); Lymphocytes 13 % (20-55); Metamyelocytes 3 %; Myelocytes 2 %; Nucleated Red Blood Cells 8 (0-5); Platelet Estimate Normal; Segmented Neutrophils 69 % (50-85); Total Cells Counted 100
[2021-04-23 05:04] LABS: Basophilic Stippling 1+; Macrocytosis 1+
[2021-04-23 05:05] LABS: Hypochromasia 1+; Polychromasia Slight; Stomatocytes Few
[2021-04-23] MEDS: VALPROIC ACID INJ 750 MG in SODIUM CHLORIDE 0.9% 100 ML IV SCH ×3 (05:30→22:10)
[2021-04-23] MEDS: CARBIDOPA/LEVODOPA 25-100 MG TABLET PO SCH ×3 (08:02→22:09)
[2021-04-23] MEDS: ASPIRIN CHEW 81 MG TABLET PO SCH (08:02)
[2021-04-23] MEDS: FAMOTIDINE 20 MG/2 ML VIAL IV SCH ×2 (08:02→22:09)
[2021-04-23] MEDS: carvediloL 3.125 MG TABLET PO SCH ×2 (08:02→22:09)
[2021-04-23] MEDS: methylPREDNISolone SOD SUC 40 MG/1 ML VIAL IV SCH ×2 (10:38→22:09)
[2021-04-23 12:41] LABS: ABG Base Excess 5.9 MMOL/L (-2.5-2.5); ABG HCO3 29.8 MMOL/L (20-26); ABG Oxygen Saturation 99.6 % (95-100); ABG PCO2 35.2 MM HG (35-48); ABG PH 7.523 (7.35-7.45); ABG TCO2 26.9 MMOL/L (23-27)
[2021-04-23] MEDS: ENOXAPARIN 40 MG/0.4 ML SYRINGE SUBCUT SCH (17:37)
[2021-04-23] MEDS: DONEPEZIL 10 MG TABLET PO SCH (22:09)
[2021-04-24] MEDS: INSULIN REGULAR 100 UNIT/ML SUBCUT SCH ×6 (00:08→20:01)
[2021-04-24] MEDS: PHENobarbital 130 MG/1 ML VIAL IV SCH ×3 (01:46→17:07)
[2021-04-24] MEDS: DEXTROSE 50% 25 GM/50 ML SYRINGE IV PRN (03:50)
[2021-04-24 04:23] LABS: ABG Base Excess 5.2 MMOL/L (-2.5-2.5); ABG HCO3 29.1 MMOL/L (20-26); ABG Oxygen Saturation 99.3 % (95-100); ABG PH 7.497 (7.35-7.45); ABG TCO2 27.1 MMOL/L (23-27)
[2021-04-24 04:25] LABS: Basophils % 0.3 % (0.0-0.8); Hematocrit 20.6 VOL% (35.7-47.0); Hemoglobin 6.9 GM/DL (12.0-16.0); Immature Granulocytes % 10.8 %; Immature Granulocytes Absolute 1.33 #; Lymphocytes # 1.6 10*3/uL (1.4-4.0); Mean Corpuscular HGB Conc 33.5 GM/DL (32-36); Mean Corpuscular Volume 100.5 FL (87-102); Mean Platelet Volume 10.3 FL (9.6-12.0); Monocytes % 6.9 % (1.7-12.7); NRBC # 0.14 10*3/uL; Red Blood Count 2.05 MC/CUMM (3.8-5.5); Red Cell Distribution Width 17.2 % (9.3-17.3); White Blood Count 12.3 T/CUMM (4-12)
[2021-04-24 04:40] LABS: Calcium 7.5 MG/DL (8.5-10.1); Osmolality,Calculated 278.2 MOS/KG (273-304)
[2021-04-24 04:46] LABS: Platelet Count 94 T/CUMM (130-400)
[2021-04-24 05:06] LABS: Band Neutrophils 4 % (0-10); Hypochromasia 1+; Lymphocytes 14 % (20-55); Metamyelocytes 1 %; Myelocytes 2 %; Nucleated Red Blood Cells 2 (0-5); Segmented Neutrophils 72 % (50-85); Total Cells Counted 100
[2021-04-24 05:07] LABS: Macrocytosis 1+; Ovalocytes Slight; Platelet Estimate Decreased; Polychromasia Slight
[2021-04-24] MEDS: VALPROIC ACID INJ 750 MG in SODIUM CHLORIDE 0.9% 100 ML IV SCH ×3 (05:35→21:38)
[2021-04-24] MEDS: ASPIRIN CHEW 81 MG TABLET PO SCH (08:01)
[2021-04-24] MEDS: FAMOTIDINE 20 MG/2 ML VIAL IV SCH ×2 (08:01→21:02)
[2021-04-24] MEDS: CARBIDOPA/LEVODOPA 25-100 MG TABLET PO SCH ×3 (08:01→21:01)
[2021-04-24] MEDS: carvediloL 3.125 MG TABLET PO SCH ×2 (08:01→21:01)
[2021-04-24] MEDS ORDERED: SODIUM CHLORIDE 0.9% 1,000 ML IV PRN (08:28)
[2021-04-24] MEDS: methylPREDNISolone SOD SUC 40 MG/1 ML VIAL IV SCH ×2 (10:38→23:20)
[2021-04-24 17:03] VITALS: BP 147/52
[2021-04-24] MEDS: ENOXAPARIN 40 MG/0.4 ML SYRINGE SUBCUT SCH (17:07)
[2021-04-24 17:20] LABS: Hematocrit 34.8 VOL% (35.7-47.0)
[2021-04-24 17:21] LABS: Hemoglobin 11.3 GM/DL (12.0-16.0)
[2021-04-24] MEDS: DONEPEZIL 10 MG TABLET PO SCH (21:02)
[2021-04-25] MEDS: INSULIN REGULAR 100 UNIT/ML SUBCUT SCH ×6 (01:26→21:30)
[2021-04-25] MEDS: DEXTROSE 50% 25 GM/50 ML SYRINGE IV PRN ×3 (01:35→10:20)
[2021-04-25 03:30] LABS: ABG Base Excess 4.9 MMOL/L (-2.5-2.5); ABG HCO3 28.8 MMOL/L (20-26); ABG Oxygen Saturation 98.6 % (95-100); ABG PCO2 39.3 MM HG (35-48); ABG PH 7.472 (7.35-7.45); ABG TCO2 25.3 MMOL/L (23-27)
[2021-04-25 05:24] LABS: Basophils # 0.1 10*3/uL (0.0-0.2); Basophils % 0.6 % (0.0-0.8); Hematocrit 36.5 VOL% (35.7-47.0); Immature Granulocytes Absolute 1.46 #; Lymphocytes # 1.8 10*3/uL (1.4-4.0); Lymphocytes % 12.1 % (21.3-54.2); Mean Corpuscular HGB Conc 32.9 GM/DL (32-36); Mean Corpuscular Volume 97.1 FL (87-102); Monocytes % 8.6 % (1.7-12.7); NRBC # 0.14 10*3/uL; Neutrophils % 68.7 % (38.7-73.9); Platelet Count 96 T/CUMM (130-400); Red Blood Count 3.76 MC/CUMM (3.8-5.5); Red Cell Distribution Width 16.9 % (9.3-17.3); White Blood Count 14.6 T/CUMM (4-12)
[2021-04-25 05:42] LABS: Calcium 8.2 MG/DL (8.5-10.1); Osmolality,Calculated 280.5 MOS/KG (273-304); Potassium 4.2 MMOL/L (3.5-5.1)
[2021-04-25 05:49] LABS: Band Neutrophils 2 % (0-10); Hypochromasia Slight; Lymphocytes 14 % (20-55); Platelet Estimate Decreased; Segmented Neutrophils 80 % (50-85); Total Cells Counted 100
[2021-04-25] MEDS: PHENobarbital 130 MG/1 ML VIAL IV SCH ×3 (06:06→15:25)
[2021-04-25] MEDS: VALPROIC ACID INJ 750 MG in SODIUM CHLORIDE 0.9% 100 ML IV SCH ×3 (06:07→21:55)
[2021-04-25] MEDS: carvediloL 3.125 MG TABLET PO SCH ×2 (08:21→21:46)
[2021-04-25] MEDS: ASPIRIN CHEW 81 MG TABLET PO SCH (08:21)
[2021-04-25] MEDS: CARBIDOPA/LEVODOPA 25-100 MG TABLET PO SCH ×3 (08:21→21:45)
[2021-04-25] MEDS: FAMOTIDINE 20 MG/2 ML VIAL IV SCH ×2 (08:22→21:45)
[2021-04-25] MEDS: DONEPEZIL 10 MG TABLET PO SCH (21:45)
[2021-04-25] MEDS: predniSONE 20 MG TABLET PO SCH (21:46)
[2021-04-25] MEDS: levETIRAcetam LIQUID 100 MG/ML 30 ML/BOTTLE PO SCH (21:46)
[2021-04-26] MEDS: INSULIN REGULAR 100 UNIT/ML SUBCUT SCH ×4 (00:04→11:54)
[2021-04-26] MEDS: PHENobarbital 130 MG/1 ML VIAL IV SCH ×3 (00:04→15:43)
[2021-04-26] MEDS: DEXTROSE 50% 25 GM/50 ML SYRINGE IV PRN ×3 (03:40→11:54)
[2021-04-26 04:47] LABS: ABG Base Excess 5.9 MMOL/L (-2.5-2.5); ABG HCO3 29.8 MMOL/L (20-26); ABG Oxygen Saturation 98.4 % (95-100); ABG PH 7.481 (7.35-7.45); ABG TCO2 26.1 MMOL/L (23-27)
[2021-04-26 05:04] LABS: Basophils # 0.1 10*3/uL (0.0-0.2); Basophils % 0.7 % (0.0-0.8); Hematocrit 37.1 VOL% (35.7-47.0); Hemoglobin 12.3 GM/DL (12.0-16.0); Immature Granulocytes % 9.4 %; Immature Granulocytes Absolute 1.01 #; Lymphocytes # 1.1 10*3/uL (1.4-4.0); Mean Corpuscular HGB Conc 33.2 GM/DL (32-36); Mean Corpuscular Volume 96.9 FL (87-102); Mean Platelet Volume 10.8 FL (9.6-12.0); Monocytes % 8.4 % (1.7-12.7); NRBC # 0.05 10*3/uL; Neutrophils % 71.5 % (38.7-73.9); Platelet Count 102 T/CUMM (130-400); Red Blood Count 3.83 MC/CUMM (3.8-5.5); Red Cell Distribution Width 17.5 % (9.3-17.3); White Blood Count 10.7 T/CUMM (4-12)
[2021-04-26 05:13] LABS: Calcium 8.2 MG/DL (8.5-10.1); Osmolality,Calculated 277.8 MOS/KG (273-304); Potassium 3.9 MMOL/L (3.5-5.1)
[2021-04-26 05:22] LABS: Band Neutrophils 3 % (0-10); Lymphocytes 13 % (20-55); Platelet Estimate Decreased; Segmented Neutrophils 77 % (50-85); Total Cells Counted 100
[2021-04-26 05:23] LABS: Macrocytosis Slight; Polychromasia Slight
[2021-04-26] MEDS: VALPROIC ACID INJ 750 MG in SODIUM CHLORIDE 0.9% 100 ML IV SCH ×2 (05:35→14:31)
[2021-04-26] MEDS ORDERED: hydrALAZINE 20 MG/1 ML VIAL IV ONE (07:43)
[2021-04-26] MEDS ORDERED: predniSONE 20 MG TABLET PO SCH (09:00)
[2021-04-26] MEDS ORDERED: ePHEDrine 50 MG/ML VIAL ONE ×2 (09:15→09:58)
[2021-04-26] MEDS ORDERED: LIDOCAINE 2% 5 ML VIAL ONE (09:57)
[2021-04-26] MEDS ORDERED: PHENYLEPHRINE 1 MG/10 ML SYRINGE IV ONE (09:58)
[2021-04-26] MEDS ORDERED: ETOMIDATE 40 MG/20 ML VIAL IV ONE (09:58)
[2021-04-26] MEDS: FAMOTIDINE 20 MG/2 ML VIAL IV SCH (10:33)
[2021-04-26] MEDS: CARBIDOPA/LEVODOPA 25-100 MG TABLET PO SCH ×2 (10:33→14:54)
[2021-04-26] MEDS: predniSONE 20 MG TABLET PO SCH (10:33)
[2021-04-26] MEDS: ASPIRIN CHEW 81 MG TABLET PO SCH (10:33)
[2021-04-26] MEDS: carvediloL 3.125 MG TABLET PO SCH (10:33)
[2021-04-26] MEDS: levETIRAcetam LIQUID 100 MG/ML 30 ML/BOTTLE PO SCH (10:34)
[2021-04-26] MEDS ORDERED: DEXTROSE 5% NACL 0.45% 1,000 ML IV SCH (12:00)
== END 2021-04-26 13:35 | DRG 4 ==
LOC: N.ED 15:00 → N.EDINP 16:42 → SUATTDRO 16:42 → N.CC 16:55
PROVIDERS: ADMIT Family Medicine; ATTEND Family Medicine
PROC: EGDWPEG (ICD-10-PCS; 2021-04-26 10:05)